=== PATIENT | female | born 1955 | race Caucasian/White ===

== ENCOUNTER → 2018-01-12 | Outpatient (CLI) | payer OTHER ==
[~2018-01-12] MED LIST: ADVIL LIQUI-GE200 MG; BUSP10; EZET10; LEVSOD100; Nexium40 MG; ZOLP10
== END | disposition home or self-care (01) ==
LOC: LAB EV 07:49 → LAB SHORT 07:49
DX: N39.0 Urinary tract infection, site not specified (principal)
CPT/HCPCS: 87077; 87086; 87186

== ENCOUNTER → 2018-03-31 | Outpatient (CLI) | payer OTHER ==
[2018-03-31 08:13] LABS: Source, Urine Clean Catch
[2018-03-31 08:29] LABS: Bacteria Rare /hpf; Squamous Epithelial Cells Few /hpf (Few); Transitional Epithelial Cells Rare /hpf (0-Rare); White Blood Cells, Urine Rare /hpf (0-5)
== END | disposition home or self-care (01) ==
LOC: LAB EV 08:10 → LAB SHORT 08:10
PROVIDERS: Physician Assistant Medical
DX: R30.0 Dysuria (principal)
CPT/HCPCS: 81015

== ENCOUNTER → 2018-05-10 | Outpatient (CLI) | payer OTHER | END | disposition home or self-care (01) | LOC: LAB EV 07:46 → LAB SHORT 07:46 | DX: N39.0 Urinary tract infection, site not specified (principal) | CPT/HCPCS: 87077; 87086; 87186 ==

== ENCOUNTER 2018-08-25 07:29 | Day surgery (SDC) | payer OTHER ==
[~2018-08-25] VITALS: Ht 162.6 cm; Wt 73.8 kg
[~2018-08-25 07:29] MED LIST changes: +Advil200 M1 PO; +BUSP10 PO; +CALCIUM 500 +1 EAC2 PO; +EZET10 PO; +LEVSOD100 PO; +MULTI VITAMIN1 EACH PO; +NEXIUM 24HR20 M3 PO; +POLY500 PO; +ZOLP10 PO
[2018-08-25] MEDS ORDERED: SIMV10 PO (08:19)
== END 2018-08-25 09:46 | disposition home or self-care (01) ==
LOC: ORSCSDS 07:29
PROVIDERS: Internal Medicine Gastroenterology
PROC: 0DBH8ZX Excision of Cecum, Via Natural or Artificial Opening Endoscopic, Diagnostic (ICD-10-PCS; principal; 2018-08-25 09:00)
DX: Z12.11 Encounter for screening for malignant neoplasm of colon (principal); D12.0 Benign neoplasm of cecum; K57.30 Diverticulosis of large intestine without perforation or abscess without bleeding; K21.9 Gastro-esophageal reflux disease without esophagitis; Z79.899 Other long term (current) drug therapy
CPT/HCPCS: 88305; J0330; J1980; J2405; J7120

== ENCOUNTER → 2018-09-02 | Outpatient (CLI) | payer OTHER ==
[~2018-09-02] MED LIST changes: +SIMV10 PO
== END | disposition home or self-care (01) ==
LOC: LAB EV 07:43 → LAB SHORT 07:43
DX: N39.0 Urinary tract infection, site not specified (principal)
CPT/HCPCS: 87077; 87086; 87186

== ENCOUNTER → 2019-09-17 | Outpatient (CLI) | payer OTHER | LOC: LAB EV 10:25 → LAB SHORT 10:25 | DX: N39.0 Urinary tract infection, site not specified (principal) | CPT/HCPCS: 87077; 87086; 87186 ==

== ENCOUNTER → 2020-01-18 | Outpatient (CLI) | payer OTHER | END | disposition home or self-care (01) | LOC: LAB SHORT 16:36 → LAB EV 16:36 | DX: N39.0 Urinary tract infection, site not specified (principal) | CPT/HCPCS: 87077; 87086; 87186 ==

== ENCOUNTER → 2025-03-04 | Outpatient (CLI) | payer MEDICARE, OTHER | LOC: LAB 10:23 → LAB SHORT 10:23 | DX: R82.81 Pyuria (principal) | CPT/HCPCS: 87086 ==

== ENCOUNTER → 2025-03-12 | Outpatient (CLI) | payer MEDICARE, OTHER | LOC: LAB 15:11 → LAB SHORT 15:11 | DX: N39.0 Urinary tract infection, site not specified (principal) | CPT/HCPCS: 87086 ==